=== PATIENT | female | born 1970 | race African-American/Black ===

== ENCOUNTER 2018-09-21 09:47 | Outpatient (CLI) | payer OTHER ==
--- NOTE | 2018-09-21 12:18 | ULT ---
LIMITED RIGHT BREAST ULTRASOUND: Date: 09/21/18 CLINICAL HISTORY: Right breast pain. FINDINGS: Limited sonographic interrogation was performed of the right breast in the lower inner quadrant in th e region of patient pain. No sonographic abnormality is evident in this region. IMPRESSION: BI-RADS Category 1 - Negative. No sonographic or mammographic abnormalities are evident to explain th e patient's breast pain. Negative imaging findings should not preclude further evaluation of a clinic ally suspicious finding. The patient was referred back to her clinician. POS: OFF
== END 2018-09-21 09:48 | disposition home or self-care (01) ==
LOC: BICMAMMO 09:47
PROVIDERS: ATTEND Family Medicine
DX: N64.4 Mastodynia (principal)
CPT/HCPCS: 77066; G0279

== ENCOUNTER → 2020-02-14 | Outpatient (CLI) | payer OTHER ==
--- NOTE | 2020-02-14 14:20 | MMO ---
Bilateral MAMMO Bilat Screen [facility]. CLINICAL HISTORY: Patient is 49 years old and is seen for screening. The patient has no family history of breast cancer. The patient has no personal history of cancer. VIEWS: The views performed were: bilateral craniocaudal with tomosynthesis and bilateral mediolateral oblique with tomosynthesis. FILMS COMPARED: The present examination has been compared to a prior imaging study performed at [facility] on 09/21/2018. This study has been interpreted with the assistance of computer-aided detection. MAMMOGRAM FINDINGS: There are scattered fibroglandular densities. There is an asymmetry seen in the outer region of the right breast. In the left breast, there are no suspicious masses, calcifications or areas of architectural distortion. IMPRESSION: ASYMMETRY IN THE RIGHT BREAST REQUIRES ADDITIONAL EVALUATION. AN ULTRASOUND EXAM IS RECOMMENDED IF NEEDED. ADDITIONAL IMAGING. THE RESULTS OF THIS EXAM WERE SENT TO THE PATIENT. ACR BI-RADS Category 0 - Incomplete: Need additional imaging evaluation. [facility] will notify the patient of the need for additional imaging services. MAMMOGRAPHY NOTE: 1. A negative mammogram report should not delay a biopsy if a dominant of clinically suspicious mass is present. 2. Approximately 10% to 15% of breast cancers are not detected by mammography. 3. Adenosis and dense breasts may obscure an underlying neoplasm. Reported by: LALIT ARANGO MD Electonically Signed: [id number]
== END ==
LOC: BICMAMMO 13:30
PROVIDERS: ATTEND Family Medicine
DX: Z12.31 Encounter for screening mammogram for malignant neoplasm of breast (principal); N64.89 Other specified disorders of breast
CPT/HCPCS: 77063; 77067

== ENCOUNTER 2020-02-19 07:47 | Outpatient (CLI) | payer OTHER ==
--- NOTE | 2020-02-19 08:31 | MMO ---
Right Breast MAMMO Unilat Diag [facility]. CLINICAL HISTORY: Patient is 49 years old and is seen for additional evaluation requested from prior study. The patient has no family history of breast cancer. The patient has no personal history of cancer. VIEWS: The views performed were: right craniocaudal spot compression with tomosynthesis; right mediolateral oblique spot compression with tomosynthesis; and right mediolateral with tomosynthesis. FILMS COMPARED: The present examination has been compared to prior imaging studies performed at [facility] on 09/21/2018, 02/14/2020 and 02/19/2020. This study has been interpreted with the assistance of computer-aided detection. MAMMOGRAM FINDINGS: There are scattered fibroglandular densities. Additional views were performed. The previously seen abnormality is not definitely seen on the current study. US shows no abnormality. There are no suspicious masses, suspicious calcifications, or new areas of architectural distortion. IMPRESSION: THERE IS NO MAMMOGRAPHIC EVIDENCE OF MALIGNANCY. A ROUTINE FOLLOW-UP MAMMOGRAM IN 1 YEAR IS RECOMMENDED. THE RESULTS OF THIS EXAM WERE SENT TO THE PATIENT. ACR BI-RADS Category 2 - Benign finding MAMMOGRAPHY NOTE: 1. A negative mammogram report should not delay a biopsy if a dominant of clinically suspicious mass is present. 2. Approximately 10% to 15% of breast cancers are not detected by mammography. 3. Adenosis and dense breasts may obscure an underlying neoplasm. Reported by: BUNNY BERG MD Electonically Signed: [id number]
--- NOTE | 2020-02-19 08:37 | ULT ---
RIGHT BREAST ULTRASOUND: HISTORY: Abnormal mammogram. FINDINGS: Correlation is made with the mammograms of today and 02/14/2020. FINDINGS: Sonographic evaluation of the right upper outer deep breast demonstrates no abnormality. IMPRESSION: BIRADS category 2 - benign findings. Return to annual mammographic screening.
== END 2020-02-19 07:48 | disposition home or self-care (01) ==
LOC: BICULT 07:47
PROVIDERS: ATTEND Family Medicine
DX: R92.2 Inconclusive mammogram (principal)
CPT/HCPCS: G0279

== ENCOUNTER 2021-10-22 15:17 | Outpatient (CLI) | payer BC | END 2021-10-22 15:18 | disposition home or self-care (01) | LOC: BICMAMMO 15:17 | PROVIDERS: ATTEND Family Medicine | DX: Z12.31 Encounter for screening mammogram for malignant neoplasm of breast (principal) | CPT/HCPCS: 77063; 77067 ==

== ENCOUNTER 2023-11-01 12:40 | Outpatient (CLI) | payer BC | END 2023-11-01 12:41 | disposition home or self-care (01) | LOC: BICMAMMO 12:40 | PROVIDERS: ATTEND Nurse Practitioner Family | DX: Z12.31 Encounter for screening mammogram for malignant neoplasm of breast (principal) | CPT/HCPCS: 77063; 77067 ==

== ENCOUNTER 2025-06-16 09:33 | Outpatient (CLI) | payer BC ==
[~2025-06-16 09:33] MED LIST: Iopamidol 370 76% 100 ML VIAL ONE
== END 2025-06-16 09:34 | disposition home or self-care (01) ==
LOC: CT 09:33
PROVIDERS: ATTEND Urology
DX: R31.29 Other microscopic hematuria (principal)
CPT/HCPCS: 74178; Q9967